=== PATIENT | female | born 1980 ===

== ENCOUNTER 2023-06-18 14:05 | Outpatient (CLI) | payer OTHER | END 2023-06-18 14:38 | disposition home or self-care (01) | LOC: MAMO-SONO 14:05 | PROVIDERS: ATTEND General Practice | DX: N60.11 Diffuse cystic mastopathy of right breast (principal); Z12.31 Encounter for screening mammogram for malignant neoplasm of breast ==

== ENCOUNTER 2023-06-25 13:17 | Outpatient (CLI) | payer OTHER | END 2023-06-25 13:32 | disposition home or self-care (01) | LOC: SONOGRAMA 13:17 | PROVIDERS: ATTEND Surgery | DX: N60.11 Diffuse cystic mastopathy of right breast (principal); D48.61 Neoplasm of uncertain behavior of right breast ==

== ENCOUNTER 2023-12-01 10:26 | Outpatient (CLI) | payer OTHER | END 2023-12-01 10:34 | disposition home or self-care (01) | LOC: SONOGRAMA 10:26 | PROVIDERS: ATTEND Surgery | DX: N60.11 Diffuse cystic mastopathy of right breast (principal); N60.12 Diffuse cystic mastopathy of left breast ==